=== PATIENT | male | born 1975 | race Caucasian/White ===

== ENCOUNTER 2019-11-28 23:48 | Observation (INO) | payer BC, OTHER ==
[2019-11-28] MEDS ORDERED: Sodium Chloride 0.9% 10 ML Syringe FLUSH PRN (23:56)
[2019-11-28] MEDS ORDERED: Sodium Chloride 0.9% 2.5 ML Syringe FLUSH PRN (23:56)
[2019-11-29] MEDS ORDERED: Alum Hydrox/Mag Hydrox/Simeth 15 ML, Metoclopramide 5 MG, Lidocaine 2% 5 ML PO ONE ×3 (00:06)
[2019-11-29] MEDS ORDERED: Aspirin 81 MG Tab.Chew PO ONE (00:06)
[2019-11-29] MEDS: Nitroglycerin 0.4 MG Tab.SL SL PRN ×2 (00:15→00:20)
--- NOTE | 2019-11-29 00:21 | EDM.PDOC ---
ED HPI GENERAL MEDICAL PROBLEM - General Chief Complaint: Chest Pain Stated Complaint: CHEST PAIN Time Seen by Provider: 11/28/19 23:52 - History of Present Illness INITIAL COMMENTS - FREE TEXT/NARRATIVE: 4-year-old male presents with 1 hour history of on again off again central chest burning pain. The patient does have a history of heartburn but this pain is worse. He has no other associated symptoms. Pain severity when I saw the patient was 6 or 7/10. He denies any shortness of breath, diaphoresis, nausea, vomiting, arm pain or jaw pain. No recent shortness of breath. Patient denies any recent trips or travels or history of DVT or PE. Patient took Tylenol for the pain at home just before arrival. Patient has no heart history, he is a smoker. Patient denies hypertension, family history of heart disease, diabetes , or hypercholesterolemia. Recent illnesses. No cough above baseline. No fever chills weakness or numbness. Treatments TREE SCOUT: Reports: EKG mid chest Pain Score (Numeric/FACES): 5 - Related Data Allergies Allergy/AdvReac Type Severity Reaction Status Date / Time No Known Allergies Allergy Verified 11/28/19 23:56 Home Meds: Home Meds . [No Known Home Meds] 11/28/19 [History] Past Medical History - Past Health History Medical/Surgical History: Denies Medical/Surgical History Other Gastrointestinal History: occasional heartburn Other Musculoskeletal History: hand and foot surgery Other Dermatologic History: Hx of MRSA 5 yrs ago from knee wound - Infectious Disease History Infectious Disease History: Reports: MRSA - Past Surgical History GI Surgical History: Reports: Cholecystectomy Social & Family History - Tobacco Use Smoking Status *Q: Current Every Day Smoker Years of Tobacco use: 27 Packs/Tins Daily: 2 - Recreational Drug Use Recreational Drug Use: No ED ROS GENERAL - Review of Systems Review Of Systems: Comprehensive ROS is negative, except as noted in HPI. ED EXAM, GENERAL - Physical Exam Exam: See Below Free Text/Narrative:: General: No acute distress. Comfortable. Heent: Examination revealed no pallor, no icterus, no lymphadenopathy. The patient has normal posterior pharynx, moist mucous membranes. Neck: Supple. No JVD. No rigidity. Heart: Normal rate. Reg rhythm. No murmurs appreciated. Lungs: Bilaterally clear to auscultation. No focal findings. Abdomen: Nontender, non-distended, soft, no CVA tenderness. Neuro: Pt is moving all four extremities. EOMI. PERRL. Normal speech. Skin: Exposed areas appeared normally perfused, warm, normal color with no meaningful rashes or lesions. Extremities: Peripheral examination revealed no pedal edema. Peripheral pulses were 2+. EKG INTERPRETATION EKG Interpretation Comments: EKG time was 11:50 PM. This EKG was of low quality with a wandering baseline. I asked for repeat at 1206. This EKG was sinus rhythm at 81. HI interval is normal. There is some trace ST depression in aVF and lead III and lead II. There is trace ST elevation in V2 but the contour was completely normal. Trace ST depression laterally as well. QTC is 440. [place] is normal. Course - Vital Signs Text/Narrative:: Patient with essentially one complaint one complaint only. Which is retrosternal chest burning pain. He endorses occasional heartburn but this pain is much worse. He was given a GI cocktail here without much relief however the nitroglycerin did seem to help his discomfort. This largely argues against hollow organ disease of the stomach. Of course acute coronary syndrome is still on the table. Given the fact that his symptoms come and go, a longer rule out would likely be helpful for him. According to have the patient admitted for chest pain rule out. Of note the patient also has a considerable leukocytosis. He denies any shortness of breath or cough above baseline. Chest x-ray is clear. Unclear the source of this leukocytosis with a cause. He of course can be monitored overnight in the hospital and other etiologies may present themselves, infectious or otherwise. Last Recorded V/S: Last Vital Signs Temp 96.4 F L 11/28/19 23:53 Pulse 83 11/28/19 23:53 Resp 18 11/28/19 23:53 BP 160/92 H 11/29/19 00:20 Pulse Ox 98 11/28/19 23:53 - Orders/Labs/Meds Orders: Active Orders 24 hr Category Date Time Status Admission Status [Patient Status] [ADT] Stat ADT 11/29/19 01:09 Ordered Cardiac Monitoring [RC] . DIRECTED Care 11/28/19 23:56 Active Nitroglycerin [Nitrostat] Med 11/29/19 00:05 Active 0.4 mg SL Q5M PRN Saline Lock Insert [OM.PC] Stat Ot 11/28/19 23:56 Ordered Medication Orders Nitroglycerin (Nitrostat) 0.4 mg SL Q5M PRN PRN Reason: Chest Pain Last Admin: 11/29/19 00:20 Dose: 0.4 mg Admin: 11/29/19 00:15 Dose: 0.4 mg Labs: Laboratory Tests 11/29/19 11/29/19 Range/Units 00:00 00:00 WBC 23.79 H (4.0-11.0) K/uL RBC 5.80 (4.50-5.90) M/uL Hgb 17.6 H (13.0-17.0) g/dL Hct 50.9 H (38.0-50.0) % MCV 87.8 (80.0-98.0) fL MCH 30.3 (27.0-32.0) pg MCHC 34.6 (31.0-37.0) g/dL RDW Std Deviation 43.2 (28.0-62.0) fl RDW Coeff of Jose Guadalupe 13 (11.0-15.0) % Plt Count 288 (150-400) K/uL MPV 9.80 (7.40-12.00) fL Neut % (Auto) 68.2 (48.0-80.0) % Lymph % (Auto) 19.5 (16.0-40.0) % [place] % (Auto) 9.9 (0.0-15.0) % Eos % (Auto) 2.0 (0.0-7.0) % Baso % (Auto) 0.4 (0.0-1.5) % Neut # (Auto) 16.2 H (1.4-5.7) K/uL Lymph # (Auto) 4.6 H (0.6-2.4) K/uL [place] # (Auto) 2.4 H (0.0-0.8) K/uL Eos # (Auto) 0.5 (0.0-0.7) K/uL Baso # (Auto) 0.1 (0.0-0.1) K/uL Nucleated RBC % 0.0 /100WBC Nucleated RBCs # 0 K/uL Sodium 133 L (136-148) mmol/L Potassium 3.9 (3.5-5.1) mmol/L Chloride 97 L (98-107) mmol/L Carbon Dioxide 28.1 (21.0-32.0) mmol/L BUN 12 (7.0-18.0) mg/dL Creatinine 1.1 (0.8-1.3) mg/dL Est Cr Clr Drug Dosing 93.08 mL/min Estimated GFR (MDRD) > 60.0 ml/min Glucose 114 H (74-106) mg/dL Calcium 8.5 (8.5-10.1) mg/dL Total Bilirubin 0.3 (0.2-1.0) mg/dL AST 30 (15-37) IU/L ALT 49 (14-63) IU/L Alkaline Phosphatase 95 (46-116) U/L Troponin I < 0.050 (0.000-0.056) ng/mL Total Protein 7.7 (6.4-8.2) g/dL Albumin 3.5 (3.4-5.0) g/dL Globulin 4.2 H (2.6-4.0) g/dL Albumin/Globulin Ratio 0.8 L (0.9-1.6) Meds: Medications Generic Name Dose Route Start Last Admin Trade Name Freq PRN Reason Stop Dose Admin Nitroglycerin 0.4 mg 11/29/19 00:05 11/29/19 00:20 Nitrostat SL 0.4 mg Q5M PRN Administration Chest Pain Discontinued Medications Generic Name Dose Route Start Last Admin Trade Name Freq PRN Reason Stop Dose Admin Aspirin 324 mg 11/29/19 00:06 11/29/19 00:14 Aspirin PO 11/29/19 00:07 324 mg ONETIME ONE Administration Al Hydroxide/Mg Hydroxide 15 0 ml 11/29/19 00:06 11/29/19 00:14 ml/ Metoclopramide HCl 5 mg/ PO 11/29/19 00:07 1 each Lidocaine HCl 5 ml ONETIME ONE Administration Sodium Chloride 10 ml 11/28/19 23:56 Saline Flush FLUSH 11/29/19 00:00 ASDIRECTED PRN Keep Vein Open Sodium Chloride 2.5 ml 11/28/19 23:56 Saline Flush FLUSH ASDIRECTED PRN Keep Vein Open Departure - Departure Time of Disposition: 01:05 Disposition: Admitted As Inpatient 65 Condition: Good, Fair Clinical Impression: Chest pain Qualifiers: Chest pain type: unspecified Qualified Code(s): R07.9 - Chest pain, unspecified - Discharge Information Referrals: PCP,None [Primary Care Provider] - Forms: ED Department Discharge Sepsis Event Note - Evaluation Sepsis Screening Result: No Definite Risk - Focused Exam Vital Signs: Vital Signs Temp Pulse Resp BP BP Pulse Ox 11/29/19 00:20 160/92 H 11/29/19 00:15 179/85 H 11/28/19 23:53 96.4 F L 83 18 173/99 H 98 Date Exam was Performed: 11/29/19 Time Exam was Performed: 01:10 - My Orders Last 24 Hours: My Active Orders 11/28/19 23:56 Cardiac Monitoring [RC] . DIRECTED Saline Lock Insert [OM.PC] Stat 11/29/19 00:05 Nitroglycerin [Nitrostat] 0.4 mg SL Q5M PRN 11/29/19 01:09 Admission Status [Patient Status] [ADT] Stat - Assessment/Plan Last 24 Hours: My Active Orders 11/28/19 23:56 Cardiac Monitoring [RC] . DIRECTED Saline Lock Insert [OM.PC] Stat 11/29/19 00:05 Nitroglycerin [Nitrostat] 0.4 mg SL Q5M PRN 11/29/19 01:09 Admission Status [Patient Status] [ADT] Stat
[2019-11-29 00:31] LABS: CARBON DIOXIDE,CO2 28.1 mmol/L (21.0-32.0); CHLORIDE,CL 97 mmol/L (98-107); GLUCOSE RANDOM 114 mg/dL (74-106); POTASSIUM,K 3.9 mmol/L (3.5-5.1); SODIUM,NA 133 mmol/L (136-148)
[2019-11-29 00:51] LABS: BLOOD UREA NITROGEN,BUN 12 mg/dL (7.0-18.0)
--- NOTE | 2019-11-29 00:54 | CR ---
INDICATION: Chest pain. COMPARISON: 02/11/2015. FINDINGS/IMPRESSION: No acute pulmonary infiltrates or other acute intrathoracic abnormalities are identified. Minimal bibasilar stranding consistent with minimal atelectasis or scarring appears similar to the prior exam. No pleural effusions. Normal heart size. Unremarkable bony structures. Dictated by Virgilio Nash MD @ 11/29/2019 12:53:03 AM Dictated by: Virgilio Nash MD @ 11/29/2019 00:53:36 (Electronically Signed)
[2019-11-29] MEDS ORDERED: Pantoprazole 40 MG in Sodium Chloride 0.9% 10 ML IV ONE (02:54)
[2019-11-29] MEDS ORDERED: Sodium Chloride 0.9% 1,000 ML IV SCH (03:00)
[2019-11-29 03:42] LABS: LIPASE 108 U/L (73-393)
[2019-11-29 06:24] LABS: BLOOD UREA NITROGEN,BUN 10 mg/dL (7.0-18.0); CARBON DIOXIDE,CO2 28.3 mmol/L (21.0-32.0); CHLORIDE,CL 101 mmol/L (98-107); GLUCOSE RANDOM 104 mg/dL (74-106); POTASSIUM,K 4.6 mmol/L (3.5-5.1); SODIUM,NA 136 mmol/L (136-148)
[2019-11-29] MEDS ORDERED: Heparin Sodium 5,000 Units/ML Vial IVPUSH PRN (06:39)
[2019-11-29] MEDS ORDERED: Heparin Sod,Pork In 0.45% Nacl 25,000 UNIT/500 ML IV.SOLN IV SCH (06:45)
--- NOTE | 2019-11-29 07:46 | PCM.HP.2 ---
H&P History of Present Illness - General Date of Service: 11/29/19 Admit Problem/Dx: Admission Diagnosis/Problem Admission Diagnosis/Problem Chest pain - History of Present Illness Initial Comments - Free Text/Narative: 44 yo male who presented to the ED with several hour complaint of intermittent chest pain. The pain occurred while he was at home getting ready for bed. He describes the pain as a substernal burn that radiates to the jaw and left arm. He was evaluated in the ED with EKG and troponin showing no signs of acute ischemia. White count was 23,000. He was given ASA and SL nitro which resolved his chest pain. mid chest Pain Score (Numeric/FACES): 5 - Related Data Allergies/Adverse Reactions: Allergies Allergy/AdvReac Type Severity Reaction Status Date / Time No Known Allergies Allergy Verified 11/29/19 02:39 Home Medications: Home Meds . [No Known Home Meds] 11/28/19 [History] Past Medical History - Past Health History Medical/Surgical History: Denies Medical/Surgical History Other Gastrointestinal History: occasional heartburn Other Musculoskeletal History: hand and foot surgery Other Dermatologic History: Hx of MRSA 5 yrs ago from knee wound - Infectious Disease History Infectious Disease History: Reports: MRSA - Past Surgical History GI Surgical History: Reports: Cholecystectomy Social & Family History - Tobacco Use Smoking Status *Q: Current Every Day Smoker Years of Tobacco use: 20 Packs/Tins Daily: 2 Second Hand Smoke Exposure: No - Caffeine Use Caffeine Use: Reports: Energy Drinks - Recreational Drug Use Recreational Drug Use: No H&P Review of Systems - Review of Systems: Review Of Systems: Comprehensive ROS is negative, except as noted in HPI. Exam - Exam Exam: See Below - Vital Signs Vital Signs: Last Vital Signs Temp 36.5 C 11/29/19 02:30 Pulse 76 11/29/19 02:30 Resp 17 11/29/19 02:30 BP 139/86 11/29/19 02:30 Pulse Ox 94 L 11/29/19 02:30 Weight: 118.478 kg - Exam General: Alert, Oriented HEENT: Mucosa Moist & [place] Neck: Supple Lungs: Clear to Auscultation, Normal Respiratory Effort Cardiovascular: Regular Rate, Regular Rhythm GI/Abdominal Exam: Normal Bowel Sounds, Soft, Non-Tender Extremities: Non-Tender, No Pedal Edema Skin: Warm, Dry, Intact Neurological: Cranial Nerves Intact - Patient Data Lab Results Last 24 hrs: Laboratory Results - last 24 hr 11/29/19 11/29/19 11/29/19 Range/Units 00:00 00:00 03:05 WBC 23.79 H (4.0-11.0) K/uL RBC 5.80 (4.50-5.90) M/uL Hgb 17.6 H (13.0-17.0) g/dL Hct 50.9 H (38.0-50.0) % MCV 87.8 (80.0-98.0) fL MCH 30.3 (27.0-32.0) pg MCHC 34.6 (31.0-37.0) g/dL RDW Std Deviation 43.2 (28.0-62.0) fl RDW Coeff of Jose Guadalupe 13 (11.0-15.0) % Plt Count 288 (150-400) K/uL MPV 9.80 (7.40-12.00) fL Neut % (Auto) 68.2 (48.0-80.0) % Lymph % (Auto) 19.5 (16.0-40.0) % [place] % (Auto) 9.9 (0.0-15.0) % Eos % (Auto) 2.0 (0.0-7.0) % Baso % (Auto) 0.4 (0.0-1.5) % Neut # (Auto) 16.2 H (1.4-5.7) K/uL Lymph # (Auto) 4.6 H (0.6-2.4) K/uL [place] # (Auto) 2.4 H (0.0-0.8) K/uL Eos # (Auto) 0.5 (0.0-0.7) K/uL Baso # (Auto) 0.1 (0.0-0.1) K/uL Nucleated RBC % 0.0 /100WBC Nucleated RBCs # 0 K/uL APTT (18.6-31.3) SEC D-Dimer, Quantitative 0.22 (0.0-0.50) mg/L FEU Lactate (0.20-2.00) mmol/L Sodium 133 L (136-148) mmol/L Potassium 3.9 (3.5-5.1) mmol/L Chloride 97 L (98-107) mmol/L Carbon Dioxide 28.1 (21.0-32.0) mmol/L BUN 12 (7.0-18.0) mg/dL Creatinine 1.1 (0.8-1.3) mg/dL Est Cr Clr Drug Dosing 93.08 mL/min Estimated GFR (MDRD) > 60.0 ml/min Glucose 114 H (74-106) mg/dL Calcium 8.5 (8.5-10.1) mg/dL Total Bilirubin 0.3 (0.2-1.0) mg/dL AST 30 (15-37) IU/L ALT 49 (14-63) IU/L Alkaline Phosphatase 95 (46-116) U/L Troponin I < 0.050 (0.000-0.056) ng/mL Total Protein 7.7 (6.4-8.2) g/dL Albumin 3.5 (3.4-5.0) g/dL Globulin 4.2 H (2.6-4.0) g/dL Albumin/Globulin Ratio 0.8 L (0.9-1.6) Lipase (73-393) U/L 11/29/19 11/29/19 11/29/19 Range/Units 03:05 03:05 05:52 WBC 17.96 H (4.0-11.0) K/uL RBC 5.71 (4.50-5.90) M/uL Hgb 16.8 (13.0-17.0) g/dL Hct 49.9 (38.0-50.0) % MCV 87.4 (80.0-98.0) fL MCH 29.4 (27.0-32.0) pg MCHC 33.7 (31.0-37.0) g/dL RDW Std Deviation 42.7 (28.0-62.0) fl RDW Coeff of Jose Guadalupe 13 (11.0-15.0) % Plt Count 282 (150-400) K/uL MPV 9.90 (7.40-12.00) fL Neut % (Auto) (48.0-80.0) % Lymph % (Auto) (16.0-40.0) % [place] % (Auto) (0.0-15.0) % Eos % (Auto) (0.0-7.0) % Baso % (Auto) (0.0-1.5) % Neut # (Auto) (1.4-5.7) K/uL Lymph # (Auto) (0.6-2.4) K/uL [place] # (Auto) (0.0-0.8) K/uL Eos # (Auto) (0.0-0.7) K/uL Baso # (Auto) (0.0-0.1) K/uL Nucleated RBC % 0.0 /100WBC Nucleated RBCs # 0 K/uL APTT (18.6-31.3) SEC D-Dimer, Quantitative (0.0-0.50) mg/L FEU Lactate 0.8 (0.20-2.00) mmol/L Sodium (136-148) mmol/L Potassium (3.5-5.1) mmol/L Chloride (98-107) mmol/L Carbon Dioxide (21.0-32.0) mmol/L BUN (7.0-18.0) mg/dL Creatinine (0.8-1.3) mg/dL Est Cr Clr Drug Dosing mL/min Estimated GFR (MDRD) ml/min Glucose (74-106) mg/dL Calcium (8.5-10.1) mg/dL Total Bilirubin (0.2-1.0) mg/dL AST (15-37) IU/L ALT (14-63) IU/L Alkaline Phosphatase (46-116) U/L Troponin I < 0.050 (0.000-0.056) ng/mL Total Protein (6.4-8.2) g/dL Albumin (3.4-5.0) g/dL Globulin (2.6-4.0) g/dL Albumin/Globulin Ratio (0.9-1.6) Lipase 108 (73-393) U/L 11/29/19 11/29/19 11/29/19 Range/Units 05:52 05:52 06:45 WBC (4.0-11.0) K/uL RBC (4.50-5.90) M/uL Hgb (13.0-17.0) g/dL Hct (38.0-50.0) % MCV (80.0-98.0) fL MCH (27.0-32.0) pg MCHC (31.0-37.0) g/dL RDW Std Deviation (28.0-62.0) fl RDW Coeff of Jose Gu[place] (11.0-15.0) % Plt Count (150-400) K/uL MPV (7.40-12.00) fL Neut % (Auto) (48.0-80.0) % Lymph % (Auto) (16.0-40.0) % [place] % (Auto) (0.0-15.0) % Eos % (Auto) (0.0-7.0) % Baso % (Auto) (0.0-1.5) % Neut # (Auto) (1.4-5.7) K/uL Lymph # (Auto) (0.6-2.4) K/uL [place] # (Auto) (0.0-0.8) K/uL Eos # (Auto) (0.0-0.7) K/uL Baso # (Auto) (0.0-0.1) K/uL Nucleated RBC % /100WBC Nucleated RBCs # K/uL APTT 27.3 (18.6-31.3) SEC D-Dimer, Quantitative (0.0-0.50) mg/L FEU Lactate (0.20-2.00) mmol/L Sodium 136 (136-148) mmol/L Potassium 4.6 (3.5-5.1) mmol/L Chloride 101 (98-107) mmol/L Carbon Dioxide 28.3 (21.0-32.0) mmol/L BUN 10 (7.0-18.0) mg/dL Creatinine 1.0 (0.8-1.3) mg/dL Est Cr Clr Drug Dosing 102.39 mL/min Estimated GFR (MDRD) > 60.0 ml/min Glucose 104 (74-106) mg/dL Calcium 8.6 (8.5-10.1) mg/dL Total Bilirubin (0.2-1.0) mg/dL AST (15-37) IU/L ALT (14-63) IU/L Alkaline Phosphatase (46-116) U/L Troponin I 0.094 H* (0.000-0.056) ng/mL Total Protein (6.4-8.2) g/dL Albumin (3.4-5.0) g/dL Globulin (2.6-4.0) g/dL Albumin/Globulin Ratio (0.9-1.6) Lipase (73-393) U/L Result Diagrams: 11/29/19 05:52 11/29/19 05:52 Sepsis Event Note - Evaluation Sepsis Screening Result: No Definite Risk - Focused Exam Vital Signs: Vital Signs Temp Pulse Resp BP BP Pulse Ox 11/29/19 02:30 36.5 C 76 17 139/86 94 L 11/29/19 01:00 72 20 143/84 H 97 11/29/19 00:20 160/92 H 11/29/19 00:15 179/85 H 11/28/19 23:53 35.8 C L 83 18 173/99 H 98 Date Exam was Performed: 12/01/19 Time Exam was Performed: 19:12 Problem List Initiated/Reviewed/Updated: Yes Orders Last 24hrs: Active Orders 24 hr Category Date Time Status Admission Status [Patient Status] [ADT] Stat ADT 11/29/19 01:25 Active Antiembolic Devices [RC] PER UNIT ROUTINE Care 11/29/19 02:56 Active Cardiac Monitoring [RC] . DIRECTED Care 11/28/19 23:56 Active EKG 12 Lead [EKG Documentation Completion] [RC] STAT Care 11/29/19 07:27 Active Oxygen Therapy [RC] PRN Care 11/29/19 02:55 Active Telemetry Monitoring [Cardiac Monitoring] [RC] Q8H Care 11/29/19 02:40 Active Up ad Priscilla [RC] ASDIRECTED Care 11/29/19 02:55 Active VTE/DVT Education [RC] PER UNIT ROUTINE Care 11/29/19 02:55 Active Vital Signs [RC] Q4H Care 11/29/19 02:55 Active Regular Diet [DIET] Diet 11/29/19 Breakfast Active Heparin Sod,Pork In 0.45% Nacl [Heparin-1/2Ns 25,000 Med 11/29/19 06:45 Active Units/500] 25,000 unit in 500 ml IV TITRATE Heparin Sodium Med 11/29/19 06:39 Active 4,000 units IVPUSH .BOLUS PRN Nitroglycerin [Nitrostat] Med 11/29/19 00:05 Active 0.4 mg SL Q5M PRN Saline Lock Insert [OM.PC] Stat Oth 11/28/19 23:56 Ordered Sequential Compression Device [OM.PC] Per Unit Routine Oth 11/29/19 02:55 Ordered Resuscitation Status Routine Resus Stat 11/29/19 02:55 Ordered Medication Orders Heparin Sodium (Porcine) (Heparin Sodium) 4,000 units IVPUSH .BOLUS PRN PRN Reason: Other Last Admin: 11/29/19 07:32 Dose: 4,000 units Heparin Sodium/Sodium Chloride (Heparin-1/2ns 25,000 Units/500) 25,000 unit in 500 mls @ 21.326 mls/hr IV TITRATE CHRISTOFER; Protocol Last Admin: 11/29/19 07:33 Dose: 9 units/kg/hr, 21.326 mls/hr Nitroglycerin (Nitrostat) 0.4 mg SL Q5M PRN PRN Reason: Chest Pain Last Admin: 11/29/19 00:20 Dose: 0.4 mg Admin: 11/29/19 00:15 Dose: 0.4 mg Assessment/Plan Comment:: 44 yo male admitted for chest pain. His repeat troponin is mildly elevated at 0.094. Repeat EKG shows no ST segment elevation. Patient is still chest pain free. His vital signs are stable. Patient received ASA in the ED on admission. We will start Heparin drip per NSTEMI protocol. Due to his elevated troponin he should be evaluated by cardiology regarding need for addition cardiac testing. I called Dr. Rice at [facility] who has accepted the patient for transfer. - Mortality Measure Prognosis:: Good
[2019-11-29 07:56] VITALS: BP 121/65; PULSE 66
== END 2019-11-29 08:45 ==
LOC: MW.ED 23:48 → MW.MS 11-29 01:25
PROVIDERS: ADMIT Internal Medicine; ATTEND Internal Medicine
DX: R07.2 Precordial pain (principal); R79.89 Other specified abnormal findings of blood chemistry; F17.210 Nicotine dependence, cigarettes, uncomplicated
CPT/HCPCS: 36415; 71045; 80048; 80053; 83605; 83690; 84484; 85025; 85027; 85379; 85730; 93005; 99285; A9270; C9113; J1644; J7030; J7050; 99284

== ENCOUNTER 2024-06-04 09:14 | Emergency (ER) | payer OTHER ==
[2024-06-04 09:51] LABS: BASOPHILS ABSOLUTE AUTO 0.13 K/uL (0.00-0.20); BASOPHILS PERCENT AUTO 0.8 % (0.0-1.0); EOSINOPHILS ABSOLUTE AUTO 0.37 K/uL (0.00-0.45); EOSINOPHILS PERCENT AUTO 2.2 % (0.0-6.0); HEMATOCRIT 51.2 % (42.0-52.0); HEMOGLOBIN 17.5 g/dL (14.0-18.0); IMMATURE GRAN ABSOLUTE AUTO 0.11 K/uL (0.00-0.05); IMMATURE GRAN PERCENT AUTO 0.7 % (0.0-0.4); LYMPHOCYTES ABSOLUTE AUTO 4.36 K/uL (1.00-4.80); LYMPHOCYTES PERCENT AUTO 26.5 % (24.0-44.0); MEAN CORPUSCULAR HEMOGLOBIN 29.7 pg (28.0-32.0); MEAN CORPUSCULAR HGB CONC 34.2 g/dL (32.0-36.0); MEAN CORPUSCULAR VOLUME 86.9 fL (83.0-99.0); MEAN PLATELET VOLUME 9.5 fL (9.4-12.4); MONOCYTES ABSOLUTE AUTO 1.29 K/uL (0.00-0.80); MONOCYTES PERCENT AUTO 7.8 % (0.0-8.0); NEUTROPHILS ABSOLUTE AUTO 10.22 K/uL (1.80-7.70); PLATELET COUNT,PLT 295 K/uL (150-400); RED BLOOD CELL COUNT 5.89 M/uL (4.52-5.90); WHITE BLOOD CELL COUNT,WBC 16.48 K/uL (3.9-11.3)
[2024-06-04 10:17] LABS: A/G RATIO 0.9 (0.9-1.6); ALBUMIN 3.6 g/dL (3.4-5.0); BILIRUBIN TOTAL 0.6 mg/dL (0.2-1.0); CALCIUM 8.8 mg/dL (8.5-10.1); CARBON DIOXIDE,CO2 28.8 mmol/L (21.0-32.0); CREATININE 1.1 mg/dL (0.8-1.3); EST CRCL DRUG DOSING (CG) 89.16 mL/min; POTASSIUM,K 4.2 mmol/L (3.5-5.1); PROTEIN TOTAL,TP 7.7 g/dL (6.4-8.2)
[2024-06-04] MEDS: Aspirin 81 MG Tab.Chew PO ONE (10:32)
[2024-06-04] MEDS: Heparin Sodium/0.45% NaCl 25,000 UNITS/250 ML BAG IV SCH (16:24)
[2024-06-04] MEDS: Heparin Sodium 5,000 Units/ML Vial IVPUSH ONE (16:25)
[2024-06-04 17:06] VITALS: BP 162/106; PULSE 65
== END 2024-06-04 17:14 ==
LOC: MW.ED 09:14
DX: I20.89 Other forms of angina pectoris (principal); I10 Essential (primary) hypertension; D72.829 Elevated white blood cell count, unspecified; F17.210 Nicotine dependence, cigarettes, uncomplicated; Z79.82 Long term (current) use of aspirin; Z79.899 Other long term (current) drug therapy; Z90.49 Acquired absence of other specified parts of digestive tract; Z75.8 Other problems related to medical facilities and other health care
CPT/HCPCS: 36415; 71046; 80053; 84484; 85025; 85730; 93005; 96365; 99285; A9270; J1644

== ENCOUNTER 2024-07-04 18:38 | Inpatient (IN) | payer OTHER ==
[2024-07-04 20:05] LABS: LACTIC ACID 1.8 mmol/L (0.4-2.0)
[2024-07-04] MEDS: Sodium Chloride 0.9% 1,000 ML IV ONE ×2 (20:20→20:25)
[2024-07-04] MEDS: Acetaminophen 500 MG Tab PO ONE (20:28)
[2024-07-04] MEDS: Ketorolac 30 MG/ML SDV IVPUSH ONE (20:30)
[2024-07-04] MEDS: methylPREDNISolone Sodium Succinate 125 MG/2 ML SDV IVPUSH ONE (20:33)
[2024-07-04] MEDS: cefTRIAXone 1 GM in Sodium Chloride 0.9% 50 ML IV ONE (20:36)
[2024-07-04] MEDS: Azithromycin 500 MG in Sodium Chloride 0.9% 250 ML IV ONE (20:43)
[2024-07-04 22:29] LABS: CORONAVIRUS COVID-19 NAA NEGATIVE (NEGATIVE); INFLUENZA A NAA NEGATIVE (NEGATIVE); INFLUENZA B NAA NEGATIVE (NEGATIVE)
[2024-07-05 06:15] LABS: BASOPHILS ABSOLUTE AUTO 0.03 K/uL (0.00-0.20); BASOPHILS PERCENT AUTO 0.2 % (0.0-1.0); EOSINOPHILS ABSOLUTE AUTO 0.02 K/uL (0.00-0.45); EOSINOPHILS PERCENT AUTO 0.2 % (0.0-6.0); HEMATOCRIT 44.4 % (42.0-52.0); HEMOGLOBIN 14.8 g/dL (14.0-18.0); IMMATURE GRAN PERCENT AUTO 0.8 % (0.0-0.4); LYMPHOCYTES PERCENT AUTO 10.6 % (24.0-44.0); MEAN CORPUSCULAR HEMOGLOBIN 29.3 pg (28.0-32.0); MEAN CORPUSCULAR HGB CONC 33.3 g/dL (32.0-36.0); MEAN CORPUSCULAR VOLUME 87.9 fL (83.0-99.0); MEAN PLATELET VOLUME 9.6 fL (9.4-12.4); MONOCYTES ABSOLUTE AUTO 0.65 K/uL (0.00-0.80); MONOCYTES PERCENT AUTO 5.3 % (0.0-8.0); NEUTROPHILS ABSOLUTE AUTO 10.18 K/uL (1.80-7.70); NEUTROPHILS PERCENT AUTO 82.9 % (41.0-71.0); PLATELET COUNT,PLT 152 K/uL (150-400); RED BLOOD CELL COUNT 5.05 M/uL (4.52-5.90); WHITE BLOOD CELL COUNT,WBC 12.28 K/uL (3.9-11.3)
[2024-07-05 06:29] LABS: CALCIUM 8.3 mg/dL (8.5-10.1); CARBON DIOXIDE,CO2 26.3 mmol/L (21.0-32.0); CREATININE 1.2 mg/dL (0.8-1.3); EST CRCL DRUG DOSING (CG) 81.73 mL/min; POTASSIUM,K 4.9 mmol/L (3.5-5.1)
[2024-07-05] MEDS: Aspirin 81 MG Tab.Chew PO SCH (09:29)
[2024-07-05] MEDS: Lisinopril 10 MG Tab PO SCH (09:29)
[2024-07-05] MEDS: Metoprolol Succinate 25 MG Tab.ER PO SCH (09:29)
[2024-07-05] MEDS: cefTRIAXone 1 GM in Sodium Chloride 0.9% 50 ML IV SCH (20:13)
[2024-07-05] MEDS: Azithromycin 500 MG in Sodium Chloride 0.9% 250 ML IV SCH (21:20)
[2024-07-05] MEDS: Rosuvastatin 10 MG Tab PO SCH (21:20)
[2024-07-06 05:33] LABS: HEMATOCRIT 41.3 % (42.0-52.0); HEMOGLOBIN 13.9 g/dL (14.0-18.0); MEAN CORPUSCULAR HEMOGLOBIN 29.1 pg (28.0-32.0); MEAN CORPUSCULAR HGB CONC 33.7 g/dL (32.0-36.0); MEAN CORPUSCULAR VOLUME 86.4 fL (83.0-99.0); MEAN PLATELET VOLUME 9.7 fL (9.4-12.4); PLATELET COUNT,PLT 175 K/uL (150-400); RED BLOOD CELL COUNT 4.78 M/uL (4.52-5.90); WHITE BLOOD CELL COUNT,WBC 16.24 K/uL (3.9-11.3)
[2024-07-06 05:52] LABS: BAND ABSOLUTE MAN 0.16; BAND PERCENT MAN 1 %
[2024-07-06 05:53] LABS: MONOCYTES ABSOLUTE MAN 1.62 K/uL (0.00-0.80); MONOCYTES PERCENT MAN 10 % (0-8)
[2024-07-06 05:54] LABS: EOSINOPHILS ABSOLUTE MAN 0.16 K/uL (0.00-0.45); EOSINOPHILS PERCENT MAN 1 % (0-6); LYMPHOCYTES ABSOLUTE MAN 4.87 K/uL (1.00-4.80); LYMPHOCYTES PERCENT MAN 30 % (24-44); SEG NEUTROPHILS ABSOLUTE MAN 9.42 K/uL (1.80-7.70); SEG NEUTROPHILS PERCENT MAN 58 % (41-71)
[2024-07-06 05:56] LABS: A/G RATIO 0.7 (0.9-1.6); ALBUMIN 2.7 g/dL (3.4-5.0); BILIRUBIN TOTAL 0.3 mg/dL (0.2-1.0); CALCIUM 8.1 mg/dL (8.5-10.1); CARBON DIOXIDE,CO2 24.2 mmol/L (21.0-32.0); CREATININE 0.9 mg/dL (0.8-1.3); EST CRCL DRUG DOSING (CG) 108.98 mL/min; POTASSIUM,K 4.2 mmol/L (3.5-5.1); PROTEIN TOTAL,TP 6.8 g/dL (6.4-8.2)
[2024-07-06 09:00] VITALS: PULSE 72
[2024-07-06 10:56] VITALS: BP 126/68
[2024-07-07 22:03] LABS: BORDETELLA PARAPERT IS1001 Not Detected (Not Detected)
== END 2024-07-06 10:30 | disposition home or self-care (01) | DRG 195 ==
LOC: MW.ED 18:38 → MW.MS 19:55
PROVIDERS: ADMIT Internal Medicine; ATTEND Family Medicine
DX: J18.9 Pneumonia, unspecified organism (principal); I10 Essential (primary) hypertension; I25.10 Atherosclerotic heart disease of native coronary artery without angina pectoris; E78.00 Pure hypercholesterolemia, unspecified; F17.210 Nicotine dependence, cigarettes, uncomplicated; F15.90 Other stimulant use, unspecified, uncomplicated; Z79.82 Long term (current) use of aspirin; Z79.899 Other long term (current) drug therapy; Z79.02 Long term (current) use of antithrombotics/antiplatelets; I25.2 Old myocardial infarction; Z95.5 Presence of coronary angioplasty implant and graft; Z90.49 Acquired absence of other specified parts of digestive tract
CPT/HCPCS: 0240U; 36415; 80048; 80053; 83605; 83735; 85025; 87040; 87486; 87581; 87633; 94667; 94668; 99222; 99239; 99284; 99285; A9270-GY; J0456; J0696; J1885; J2919; J3490; J7030; J7050